=== PATIENT | male | born 1980 | race Caucasian/White ===

== ENCOUNTER 2020-07-21 07:20 | Emergency (ER) | payer OTHER ==
[~2020-07-21] VITALS: Ht 198.1 cm; Wt 131.8 kg
[2020-07-21] MEDS ORDERED: ZITHROMAX Z PA250 MG PO (08:48)
[2020-07-21 08:52] LABS: BASO % 0.2 % (0.0-2.0); EOS # 0.1 (0.0-0.7); EOS % 0.9 % (0-4.0); GRAN # 3.6 (1.4-6.5); GRAN % 65.7 % (42.2-75.2); HEMATOCRIT 46.5 % (42.0-52.0); LYMPH # 1.4 (1.2-3.4); LYMPH % 25.5 % (20.0-51.0); MEAN CELL VOLUME 90 fl (80.0-100.0); MEAN CORPUSCULAR HEMOGLOBIN 31 pg (27.0-31.0); MEAN CORPUSCULAR HGB CONC 34 g/dl (33.0-37.0); MEAN PLATELET VOLUME 9.6 fl (7.4-10.4); MONO # 0.4 (0.1-0.6); MONO % 7.5 % (1.7-9.3); PLATELET COUNT 139 K/mm3 (130-400); RED BLOOD COUNT 5.15 M/mm3 (4.20-5.60)
[2020-07-21 08:59] LABS: ALBUMIN 4.3 gm/dL (3.5-5.0); BILIRUBIN,TOTAL 0.4 mg/dL (0.0-1.0); CALCIUM 9.1 mg/dL (8.4-10.2); CREATININE, serum 0.86 (0.66-1.25); POTASSIUM 3.9 mmol/L (3.4-5.0); TOTAL PROTEIN 7.1 gm/dL (6.4-8.2)
[2020-07-21 09:40] VITALS: BP 135/92; PULSE 90; TEMP 98.1
== END 2020-07-21 09:40 | disposition home or self-care (01) ==
LOC: COL.ER 07:20
PROVIDERS: Family Medicine
DX: U07.1 COVID-19 (principal); F17.210 Nicotine dependence, cigarettes, uncomplicated
CPT/HCPCS: J1100; J7120